=== PATIENT | male | born 1945 | race Native Hawaiian/Other Pacific Islander ===

== ENCOUNTER 2017-06-04 11:36 | Day surgery (SDC) | payer OTHER | END 2017-06-04 11:37 | LOC: OPSURG 11:36 | PROVIDERS: ATTEND Internal Medicine Gastroenterology | DX: Z53.8 Procedure and treatment not carried out for other reasons (principal) | CPT/HCPCS: S1016 ==

== ENCOUNTER 2017-07-07 18:25 | Emergency (ER) | payer OTHER ==
--- NOTE | 2017-07-07 19:35 | ED Physician Documentation ---
Male Genitourinary Problems - HISTORIAN Historian: patient - HPI Stated Complaint: URINARY RETENTION Chief Complaint: Abdominal Pain Onset: days ago (3 days) Duration: continues in ED Further Comments: yes (3 day history of difficuties with uriantion. Has been having some dysuria) - Associated Symptoms Penile Discharge Descripiton: other (none) Testicular Pain: none Testicular Swelling: none Penile Pain: Yes - ROS CONST: denies: fever GI/: abdominal pain, problems urinating. denies: nausea, vomiting - PAST HX Past History: other (Parkinson disease, thromocytopenia/pancytopenia, dementia, HTN, s/p CVA, GERD, hypothyroidism, bladder spasms, pernicious anemia, OA, ) Cardiac Disease: none Surgeries/Procedures: other (s/p deep brain stimulator,) Allergies/Adverse Reactions: Allergies Allergy/AdvReac Type Severity Reaction Status Date / Time No Known Allergies Allergy Verified 07/07/17 20:09 Home Medications: Ambulatory Orders Medication Instructions Recorded Aripiprazole [Abilify] 2 mg PO HS 07/07/17 Aspirin EC [Ecotrin] 81 mg PO D 07/07/17 Buspirone HCl [Buspar] 15 mg PO BID 07/07/17 Carbidopa/Levodopa [Sinemet CR] 1 tab PO QID 07/07/17 Cyanocobalamin [Vitamin B-12] 1,000 mcg IM MONTH 07/07/17 Entacapone [Comtan] 200 mg PO QID 07/07/17 Ergocalciferol (Vitamin D2) 50,000 units PO WEEK 07/07/17 [Vitamin D-2] Furosemide [Lasix] 40 mg PO D 07/07/17 Gabapentin [Neurontin] 300 mg PO BID 07/07/17 HYDROcodone /APAP 5/325 [Carman 1 tab PO Q6H PRN 07/07/17 5/325] LORazepam [Ativan] 0.5 mg PO HS 07/07/17 Levothyroxine Sodium [Levoxyl] 88 mcg PO D 07/07/17 Losartan Potassium [Cozaar] 25 mg PO D 07/07/17 Meloxicam [Mobic] 7.5 mg PO BID 07/07/17 Memantine HCl [Namenda XR] 28 mg PO D 07/07/17 Mirabegron [Myrbetriq] 25 mg PO D 07/07/17 Polyethylene Glycol 3350 [Miralax] 1 packet PO D 07/07/17 Potassium Chloride [Klor-Con 10 meq PO BID 07/07/17 Sprinkle] Primidone [Mysoline] 125 mg PO TID 07/07/17 Quetiapine Fumarate [Seroquel] 50 mg PO HS 07/07/17 Ranitidine HCl [Ranitidine HCl] 150 mg PO D 07/07/17 Ropinirole HCl [Ropinirole HCl] 5 mg PO QID 07/07/17 Sennosides [Senna] 8.6 mg PO D 07/07/17 Simvastatin [Zocor] 40 mg PO HS 07/07/17 Trazodone HCl [Desyrel] 100 mg PO HS 07/07/17 - SOCIAL HX Smoking History: non-smoker Alcohol Use: none Drug Use: none - FAMILY HX Family History: none - VITAL SIGNS Vital Signs: Vital Signs Temp Pulse Resp BP Pulse Ox 97.4 F L 78 24 136/78 99 07/07/17 18:57 07/07/17 18:57 07/07/17 18:57 07/07/17 18:57 07/07/17 18:57 - REVIEWED ASSESSMENTS Nursing Assessment Reviewed: Yes Vitals Reviewed: Yes ED Results Lab/Radiology - Lab Results Lab Results: Lab Results 07/07/17 07/07/17 20:38 20:38 WBC 6.40 K/ul K/ul (4.00-12.00) RBC 4.44 M/ul M/ul (3.90-5.20) Hgb 14.0 g/dL g/dL (12.0-18.0) Hct 42.0 % % (37.0-53.0) MCV 94.6 fl fl (80.0-100.0) MCH 31.5 pg pg (28.0-34.0) MCHC 33.3 g/dL g/dL (30.0-36.0) RDW 13.0 % % (11.3-14.3) Plt Count 117 K/mm3 L K/mm3 (130-400) Neut % (Auto) 64.0 % % (39.0-79.0) Lymph % (Auto) 25.1 % % (16.0-50.0) Yancey % (Auto) 5.9 % % (0.0-11.0) Eos % (Auto) 1.6 % % (0.0-6.8) Baso % (Auto) 0.7 (0.0-1.5) Neut # (Auto) 4.1 # k/uL # k/uL (1.4-7.7) Lymph # (Auto) 1.6 # k/uL # k/uL (0.6-4.0) Yancey # (Auto) 0.4 # k/uL # k/uL (0.0-0.9) Eos # (Auto) 0.1 # k/uL # k/uL (0.0-0.6) Baso # (Auto) 0.0 # k/uL # k/uL (0.0-0.5) Reactive Lymphs % 2.7 % % (0.0-5.0) Reactive Lymphs # 0.2 # k/uL # k/uL (0.0-0.8) Sodium 143 mmol/L mmol/L (136-145) Potassium 4.1 mmol/L mmol/L (3.5-5.1) Chloride 105 mmol/L mmol/L (98-107) Carbon Dioxide 28 mmol/L mmol/L (22-30) BUN 19 mg/dL mg/dL (9-20) Creatinine 0.80 mg/dL mg/dL (0.66-1.25) Estimated Creat Clear 110 Est GFR ( Amer) > 60 (60 - ) Est GFR (Non-Af Amer) > 60 (60 - ) Glucose 100 mg/dL mg/dL (74-106) Calcium 8.9 mg/dL mg/dL (8.4-10.2) Total Bilirubin 0.7 mg/dL mg/dL (0.2-1.3) AST 69 U/L H U/L (15-46) ALT 29 U/L U/L (13-69) Alkaline Phosphatase 79 U/L U/L (38-126) Total Protein 7.3 g/dL g/dL (6.3-8.2) Albumin 4.0 g/dL g/dL (3.5-5.0) - Radiology Radiology Impressions: Computed tomography Abdomen/pelvis with contrast History: Bloating and left lower quadrant pain Findings: Transverse abdomen and pelvis sections are obtained after 100 mL intravenous omnipaque 300. The exam is limited motion artifact. Small gallstones may be present without gallbladder distention or wall thickening. A small right renal cyst, minimal atherosclerosis multilevel thoracolumbar spondylosis, old L1 and L2 compression deformities, and L4 through S1 fusion and decompression are observed. The liver, spleen, pancreas, kidneys, adrenals, great vessels, and mesenteric structures are otherwise normal. The region of the appendix is obscured by motion but there is no definite evidence of acute appendicitis. Bowel loops exhibit normal caliber and wall thickness. Pelvic sections reveal mild prostate enlargement, bladder catheter, and unremarkable bowel loops. No acute inflammatory or obstructive process observed. Impression: 1. Exam limited by motion. 2. No imaging correlate to explain the patient's symptoms. 3. Thoracolumbar spondylosis and multilevel lumbar postoperative change. 4. Possibly small gallstones without evidence of cholecystitis. 5. Mild prostate enlargement. 6. Bladder catheter. - Orders Orders: ED Orders Category Date Time Status Catheter [Urinary catheterization] 1T Care 07/07/17 19:[address] IV Lock 1T Care 07/07/17 20:[address] ABD & PELVIS W/ CON Stat Exams 07/07/17 Ordered CBC/PLATELET/DIFF Routine Lab 07/07/17 20:38 Completed CMP Routine Lab 07/07/17 20:38 Completed URINALYSIS Routine Lab 07/07/17 19:37 Ordered Sulfamethoxazole/Trimethoprim [Bactrim Ds] Med 07/08/17 22:30 Once 1 each PO NOW ONE Male Genitourinary Problems - EXAM General Appearance: alert, mild distress Abdomen: tenderness (LLQ, suprapubic area). No: hepatomegaly, splenomegaly, mass, distended bladder Genitals: nml inspection, testicles nml palp.. No: urethral discharge Neck: nml inspection Respiratory: no resp distress, chest non-tender, breath sounds normal. No: wheezes, rales, rhonchi CVS: reg rate & rhythm, heart sounds normal, equal pulses, no murmur Back: non-tender, painless ROM Neuro/Psych: CN's nml as tested, motor nml, sensation nml, mood/affect nml. No : cognition normal (hard to acess due to communication difficulties. ) Skin: warm/dry, normal color Discharge Clincal Impression: UTI (urinary tract infection) Referrals: David Plascencia MD [Primary Care Provider] - 2 Days Additional Instructions: Encourage a lot of fluids. Take Bactrim DS BID for 7 days. Urine culture ordered. Watch for fever and/or chills. Leave catheter in until Sunday AM Condition: Stable Disposition: 04 [facility] Decision to Admit: NO Date of Decison to Admit: 07/07/17 Decision Time: 22:26
[2017-07-07 21:17] LABS: eGFR (African) > 60; eGFR (Non-African) > 60
[2017-07-07 21:18] LABS: BASOPHILS % 0.7 (0.0-1.5); EOSINOPHILS % 1.6 % (0.0-6.8); MEAN CORPUSCULAR HEMOGLOBIN 31.5 pg (28.0-34.0); MEAN CORPUSCULAR VOLUME 94.6 fl (80.0-100.0); MONOCYTES % 5.9 % (0.0-11.0); NEUTROPHILS # 4.1 # k/uL (1.4-7.7)
[2017-07-07] MEDS: SULFAMETHOXAZOLE/TRIMETHOPRIM 1 EACH TABLET PO ONE (22:45)
[2017-07-07] MEDS ORDERED: SULFAMETHOXAZOLE/TRIMETHOPRIM 1 EACH TABLET PO ONE (22:48)
[2017-07-07 23:25] VITALS: BP 146/80
--- NOTE | 2017-07-08 02:04 | Diagnostic Imaging Report ---
[facility] [address] [facility].[address] [id number] Report Submission Date: Jul 07, 2017 10:09:50 PM CDT Patient Study Name: GORDO GRANT Date: Jul 07, 2017 9:42:00 PM CDT Modality Type: CT\SR Gender: M Description: CT ABD PELVIS W/ CON : 47 Institution: [facility] Physician: MAYURI PARISI Computed tomography Abdomen/pelvis with contrast History: Bloating and left lower quadrant pain Findings: Transverse abdomen and pelvis sections are obtained after 100 mL intravenous omnipaque 300. The exam is limited motion artifact. Small gallstones may be present without gallbladder distention or wall thickening. A small right renal cyst, minimal atherosclerosis multilevel thoracolumbar spondylosis, old L1 and L2 compression deformities, and L4 through S1 fusion and decompression are observed. The liver, spleen, pancreas, kidneys, adrenals, great vessels, and mesenteric structures are otherwise normal. The region of the appendix is obscured by motion but there is no definite evidence of acute appendicitis. Bowel loops exhibit normal caliber and wall thickness. Pelvic sections reveal mild prostate enlargement, bladder catheter, and unremarkable bowel loops. No acute inflammatory or obstructive process observed. Impression: 1. Exam limited by motion. 2. No imaging correlate to explain the patient's symptoms. 3. Thoracolumbar spondylosis and multilevel lumbar postoperative change. 4. Possibly small gallstones without evidence of cholecystitis. 5. Mild prostate enlargement. 6. Bladder catheter. Electronically signed on Jul 07, 2017 10:09:50 PM CDT by: Srikanth HERMAN
== END 2017-07-07 22:57 ==
LOC: ED 18:25
DX: N39.0 Urinary tract infection, site not specified (principal); G20 Parkinson's disease; F02.80 Dementia in other diseases classified elsewhere, unspecified severity, without behavioral disturbance, psychotic disturbance, mood disturbance, and anxiety; I10 Essential (primary) hypertension
CPT/HCPCS: 51702; 74177; 80053; 85025; A9270; J7030; 99284; Q9967; S1016